=== PATIENT | female | born 1960 | race Caucasian/White ===

== ENCOUNTER → 2020-01-11 12:37 | Outpatient (BNVA) | payer OTHER, SELFPAY | PROVIDERS: PCP Internal Medicine; Referring Provider Internal Medicine; Visit Provider Student in an Organized Health Care Education/Training Program | DX: M05.79 Rheumatoid arthritis with rheumatoid factor of multiple sites without organ or systems involvement (principal); M1A.30X0 Chronic gout due to renal impairment, unspecified site, without tophus (tophi) | CPT/HCPCS: 99213 ==

== ENCOUNTER 2020-01-19 18:27 | Emergency (ER) | payer OTHER, SELFPAY ==
[2020-01-19 19:18] VITALS: BP 149/65; PULSE 78; RESP 16; TEMP 36.6; O2SAT 97; BMI 34.1
--- NOTE | 2020-01-19 19:37 | ED_ITS ---
HPI - Wound/Laceration General Chief Complaint: Wound/Laceration Stated Complaint: FINGER LAC Time Seen by Provider: 01/19/20 19:30 History of Present Illness HPI narrative: Patient was home slicing something for dinner and cut the tip of her left middle finger with the knife, no other injury no numbness no weakness no tingling, she applied a Band-Aid and bleeding stopped this happened about an hour ago and pain is mild She has not had a tetanus shot as far back as she could remember Related Data Home Medications Medication Instructions Recorded Confirmed aspirin 81 mg tablet,delayed 81 mg PO DAILY 01/11/20 01/11/20 release carvedilol 12.5 mg tablet 12.5 mg PO BID 01/11/20 01/11/20 colchicine 0.6 mg tablet 0.6 mg PO DAILY 01/11/20 01/11/20 ergocalciferol (vitamin D2) 1,250 1,250 mcg PO QWEEK 01/11/20 01/11/20 mcg (50,000 unit) capsule loratadine 10 mg tablet 10 mg PO DAILY 01/11/20 01/11/20 probenecid 500 mg tablet 500 mg PO DAILY tab 01/11/20 01/11/20 rosuvastatin 20 mg tablet 20 mg PO DAILY 01/11/20 01/11/20 spironolactone 25 mg tablet 12.5 mg PO DAILY tab 01/11/20 01/11/20 Previous Rx's Medication Instructions Recorded prednisone 5 mg tablet 5 mg PO DAILY 30 Days #30 tab 12/24/19 zolpidem 10 mg tablet 10 mg PO BEDTIME PRN 30 Days #30 12/24/19 tab torsemide 10 mg tablet 10 mg PO DAILY 30 Days #30 tab 12/29/19 oxycodone 15 mg tablet 15 mg PO Q6H PRN 28 Days #112 tab 01/12/20 Allergies Allergy/AdvReac Type Severity Reaction Status Date / Time acetaminophen [From TYLENOL] Allergy Unknown RASH Verified 01/11/20 12:52 amoxicillin [From AUGMENTIN] Allergy Unknown RASH, hives Verified 01/11/20 12:52 aspirin [ASPIRIN] Allergy Unknown SENSITIVITY Verified 01/11/20 12:52 atorvastatin [From LIPITOR] Allergy Unknown ABDOMNINAL Verified 01/11/20 12:52 PAINS AND CRAMPS cephalexin [From KEFLEX] Allergy Unknown VOMITING Verified 01/11/20 12:52 clavulanic acid Allergy Unknown RASH Verified 01/11/20 12:52 [From AUGMENTIN] ibuprofen [IBUPROFEN] Allergy Unknown ABDOMINAL Verified 01/11/20 12:52 PAIN, abdominal pains ONLY at high doses, abd pain with high doses losartan Allergy Unknown tremors, Verified 01/11/20 12:52 dizziness morphine Allergy Unknown rash, Unverified 10/18/19 00:00 vomiting, vomiting, rash Penicillins [PENICILLINS] Allergy Unknown RASH Verified 01/11/20 12:52 LOSARTAN POTASSIUM Allergy Unknown TREMORS/DIZ Uncoded 12/07/19 18:28 ZINESS Review of Systems Review of Systems: No numbness no tingling no fever no dizziness no weakness Yes all other systems are reviewed and are negative [facility] Past Medical History Source: nursing notes reviewed Medical History (Updated 01/19/20 @ 19:54 by WLAT Vu) Gout Insomnia Pacemaker Rheumatoid arthritis Social History Social History (Updated 01/11/20 @ 12:49 by Antony Caicedo LPN) Alcohol intake: never Smoking Status: Current every day smoker Tobacco Type: Cigarette Substance Use Type: Marijuana Advance Directives: No Physical Exam Vital Signs: Vital Signs: Vital Signs Temp Pulse Resp BP Pulse Ox 01/19/20 19:18 97.8 F 78 16 149/65 H 97 Body Mass Index 34.1 Patient is A&O x3, comfortable, no distress Head is normocephalic atraumatic Neck is supple Respiratory no respiratory distress Extremity exam of the left middle finger there is a 1 cm flap laceration that is not bleeding, no deformity, full range of motion in all joints, no evidence of tendon laceration and all is neurovascular intact Neuro and O x3, no focal deficits Course Course Course Narrative: Procedure note for left middle finger did tip distal phalanx 1 cm laceration, flap laceration Digital block with 8 cc of 1% lidocaine was placed with good anesthesia The flap laceration was cleansed and irrigated with normal saline The laceration was then closed with 3 5.0 sutures Bleeding was controlled, neurovascular intact Discharge Plan Discharge Clinical Impression: Finger laceration Qualifiers: Encounter type: initial encounter Finger: middle finger Damage to nail status: without damage Laterality: left Qualified Code(s): S61.213A - Laceration without foreign body of left middle finger without damage to nail, initial encounter Patient Disposition: Home, Self-Care Additional Instructions: Stitches out in 7 days Return any time for redness swelling fever any sign of infection, red stripe up the arm, discharge from the wound, any concerns or worse condition You got a tetanus shot Prescriptions: No Action prednisone 5 mg tablet 5 mg PO DAILY 30 Days Qty: 30 RF: 1 zolpidem 10 mg tablet 10 mg PO BEDTIME PRN (Reason: sleep) 30 Days Qty: 30 RF: 2 torsemide 10 mg tablet 10 mg PO DAILY 30 Days Qty: 30 RF: 3 oxycodone 15 mg tablet 15 mg PO Q6H PRN (Reason: pain) 28 Days Qty: 112 RF: 0 aspirin [Adult Low Dose Aspirin] 81 mg tablet,delayed release (DR/EC) 81 mg PO DAILY RF: 0 spironolactone 25 mg tablet 12.5 mg PO DAILY RF: 0 carvedilol 12.5 mg tablet 12.5 mg PO BID RF: 0 rosuvastatin 20 mg tablet 20 mg PO DAILY RF: 0 ergocalciferol (vitamin D2) 1,250 mcg (50,000 unit) capsule 1,250 mcg PO QWEEK RF: 0 loratadine [Claritin] 10 mg tablet 10 mg PO DAILY RF: 0 probenecid 500 mg tablet 500 mg PO DAILY RF: 0 colchicine [Colcrys] 0.6 mg tablet 0.6 mg PO DAILY RF: 0 Interventions: ED Discharge Assessment Last Done: 01/19/20 20:42 Discharge Date/Time: 01/19/20 20:46
[2020-01-19] MEDS: Lidocaine HCl 1 % MPF 5 ML VIAL 10 ML SUBCUT (19:52)
== END 2020-01-19 20:46 | disposition home or self-care (01) ==
PROVIDERS: Emergency Provider Internal Medicine; PCP Internal Medicine
DX: S61.213A Laceration without foreign body of left middle finger without damage to nail, initial encounter (principal); S60.413A Abrasion of left middle finger, initial encounter; M79.645 Pain in left finger(s); W26.0XXA Contact with knife, initial encounter; Y93.9 Activity, unspecified; Y92.000 Kitchen of unspecified non-institutional (private) residence as the place of occurrence of the external cause; Y99.9 Unspecified external cause status; Z79.899 Other long term (current) drug therapy; F17.210 Nicotine dependence, cigarettes, uncomplicated; Z71.6 Tobacco abuse counseling; Z23 Encounter for immunization
CPT/HCPCS: 12001; 90471; 90715; 99284

== ENCOUNTER 2020-11-04 13:33 | Emergency (ER) | payer OTHER, SELFPAY ==
[2020-11-04 13:50] VITALS: BP 121/61; PULSE 72; RESP 18; TEMP 36.8; O2SAT 98; BMI 33.6
[2020-11-04] MEDS: Lidocaine HCl 1 % MPF 5 ML VIAL SUBCUT ×2 (15:15)
--- NOTE | 2020-11-04 15:33 | ED.SKABFB ---
HPI - Skin/Abscess/Foreign Bdy General Chief complaint: Skin/Abscess/Foreign Body Stated complaint: abscess Time Seen by Provider: 11/04/20 14:39 History of Present Illness HPI narrative: Patient complains of right thigh redness swelling and pain similar to prior abscess in the same area, no fever no chills Related Data Home Medications Medication Instructions Recorded Confirmed aspirin 81 mg tablet,delayed 81 mg PO DAILY 01/11/20 05/28/20 release (Adult Low Dose Aspirin) albuterol sulfate 90 mcg/actuation 2 puff INHALATION Q6H PRN 02/27/20 05/28/20 aerosol inhaler cholecalciferol (vitamin D3) 1,250 1,250 mcg PO QWEEK 02/27/20 05/28/20 mcg (50,000 unit) capsule Previous Rx's Medication Instructions Recorded probenecid 500 mg tablet 500 mg PO BID #60 tab 03/16/20 ergocalciferol (vitamin D2) 1,250 1,250 mcg PO QWEEK 90 Days #13 cap 04/02/20 mcg (50,000 unit) capsule spironolactone 25 mg tablet 12.5 mg PO DAILY 90 Days #45 tab 04/29/20 docusate sodium 100 mg capsule 100 mg PO DAILY PRN #30 cap 07/08/20 (Stool Softener) rosuvastatin 20 mg tablet 20 mg PO DAILY 90 Days #90 tab 07/18/20 torsemide 20 mg tablet 20 mg PO .COMPLEX #90 tab 08/05/20 carvedilol 12.5 mg tablet 12.5 mg PO BID #180 tab 08/16/20 colchicine 0.6 mg tablet 0.6 mg PO DAILY #90 tab 08/16/20 famotidine 20 mg tablet 20 mg PO BID PRN #180 tab 08/16/20 loratadine 10 mg tablet 10 mg PO DAILY PRN #30 tab 10/13/20 prednisone 5 mg tablet 5 mg PO DAILY #30 tab 10/13/20 oxycodone 15 mg tablet 15 mg PO Q6H PRN 28 Days #112 tab 10/14/20 zolpidem 10 mg tablet 10 mg PO BEDTIME PRN 30 Days #30 10/20/20 tab prednisone 10 mg tablets in a dose See Rx Instructions PO PER PKG DIR 10/22/20 pack 8 Days #20 tab carisoprodol 350 mg tablet 350 mg PO QID PRN 30 Days #120 tab 10/29/20 sacubitril 49 mg-valsartan 51 mg 1 tab PO BID 90 Days #180 tab 10/29/20 tablet (Entresto) doxycycline hyclate 100 mg capsule 100 mg PO BID 7 Days #14 cap 11/04/20 Allergies Allergy/AdvReac Type Severity Reaction Status Date / Time acetaminophen [From TYLENOL] Allergy Unknown RASH Verified 05/28/20 15:28 amoxicillin [From AUGMENTIN] Allergy Unknown RASH, hives Verified 05/28/20 15:28 aspirin [ASPIRIN] Allergy Unknown SENSITIVITY Verified 05/28/20 15:28 clavulanic acid Allergy Unknown RASH Verified 05/28/20 15:28 [From AUGMENTIN] morphine Allergy Unknown rash, Verified 05/28/20 15:28 vomiting, vomiting, rash Penicillins [PENICILLINS] Allergy Unknown RASH Verified 05/28/20 15:28 atorvastatin [From LIPITOR] AdvReac Unknown ABDOMNINAL Verified 05/28/20 15:28 PAINS AND CRAMPS cephalexin [From KEFLEX] AdvReac Unknown VOMITING Verified 05/28/20 15:28 ibuprofen [IBUPROFEN] AdvReac Unknown ABDOMINAL Verified 05/28/20 15:28 PAIN, abdominal pains ONLY at high doses, abd pain with high doses losartan AdvReac Unknown tremors, Verified 05/28/20 15:28 dizziness Review of Systems Review of Systems: Positive for right thigh abscess Negatives are no fever no chills no headache no neck pain no difficulty breathing no calf pain no calf swelling no joint pains Yes all other systems are reviewed and are negative [facility] Past Medical History Source: nursing notes reviewed Medical History Chronic kidney disease, stage 4 (severe) Constipation Coronary artery disease Gout Insomnia Ischemic cardiomyopathy with implantable cardioverter-defibrillator (ICD) Left breast lump Lumbar degenerative disc disease Obesity (BMI 30-39.9) Pacemaker Primary insomnia Primary osteoarthritis of right elbow Pure hypercholesterolemia Rheumatoid arthritis Smoker Vitamin D deficiency Surgical History Fusion of lumbar spine H/O heart artery stent History of pacemaker History of surgery Family History Family History Father Hodgkin disease Mother Uterine cancer CHF (congestive heart failure) CVD (cardiovascular disease) Social History Social History Alcohol intake: never Cigarettes Per Day: 12 Substance Use Type: Marijuana Advance Directives: No Advance Directives Information Provided: No Patient : No Physical Exam Vital Signs: Vital Signs: Last Vital Signs Temp 98.2 F 11/04/20 13:50 Pulse 72 11/04/20 13:50 Resp 18 11/04/20 13:50 BP 121/61 11/04/20 13:50 Pulse Ox 98 11/04/20 13:50 Body Mass Index 33.6 General appearance no acute distress Head is normocephalic atraumatic Neck is supple Respiratory no distress Extremities the right mid upper medial thigh has a small area of redness swelling and tenderness consistent with an abscess, full range of motion in hip and thigh, walking with no limp Course Course Course Narrative: Right thigh abscess is cleansed with Betadine Anesthesia is 8 cc of 1% lidocaine A small incision was made with discharge of pus, loculations were broken up with forceps and packing was placed Discharge Plan Discharge Clinical Impression: Abscess Patient Disposition: Home, Self-Care Additional Instructions: Return to ER in 2 days for packing removal/wound check Return any time for spreading redness worse pain and swelling fever any worse condition or any concerns Prescriptions: New doxycycline hyclate 100 mg capsule 100 mg PO BID 7 Days Qty: 14 RF: 0 No Action probenecid 500 mg tablet 500 mg PO BID Qty: 60 RF: 3 ergocalciferol (vitamin D2) 1,250 mcg (50,000 unit) capsule 1,250 mcg PO QWEEK 90 Days Qty: 13 RF: 3 spironolactone 25 mg tablet 12.5 mg PO DAILY 90 Days Qty: 45 RF: 5 docusate sodium [Stool Softener] 100 mg capsule 100 mg PO DAILY PRN (Reason: for constipation) Qty: 30 RF: 5 rosuvastatin 20 mg tablet 20 mg PO DAILY 90 Days Qty: 90 RF: 1 torsemide 20 mg tablet 20 mg PO .COMPLEX Qty: 90 RF: 1 colchicine 0.6 mg tablet 0.6 mg PO DAILY Qty: 90 RF: 0 famotidine 20 mg tablet 20 mg PO BID PRN (Reason: for heartburn) Qty: 180 RF: 0 carvedilol 12.5 mg tablet 12.5 mg PO BID Qty: 180 RF: 1 prednisone 5 mg tablet 5 mg PO DAILY Qty: 30 RF: 1 loratadine 10 mg tablet 10 mg PO DAILY PRN (Reason: for allergies) Qty: 30 RF: 5 oxycodone 15 mg tablet 15 mg PO Q6H PRN (Reason: pain) 28 Days Qty: 112 RF: 0 zolpidem 10 mg tablet 10 mg PO BEDTIME PRN (Reason: sleep) 30 Days Qty: 30 RF: 2 prednisone 10 mg tablets,dose pack See Rx Instructions PO PER PKG DIR 8 Days Qty: 20 RF: 0 carisoprodol 350 mg tablet 350 mg PO QID PRN (Reason: muscle pain) 30 Days Qty: 120 RF: 0 Entresto 49-51 mg tablet 1 tab PO BID 90 Days Qty: 180 RF: 3 albuterol sulfate 90 mcg/actuation HFA aerosol inhaler 2 puff inhalation Q6H PRNRF: 0 cholecalciferol (vitamin D3) 1,250 mcg (50,000 unit) capsule 1,250 mcg PO QWEEK RF: 0 aspirin [Adult Low Dose Aspirin] 81 mg tablet,delayed release (DR/EC) 81 mg PO DAILY RF: 0
== END 2020-11-04 15:52 | disposition home or self-care (01) ==
PROVIDERS: Emergency Provider Internal Medicine; PCP Internal Medicine
DX: L02.415 Cutaneous abscess of right lower limb (principal); E78.00 Pure hypercholesterolemia, unspecified; F17.210 Nicotine dependence, cigarettes, uncomplicated; Z95.0 Presence of cardiac pacemaker; Z79.899 Other long term (current) drug therapy; Z79.02 Long term (current) use of antithrombotics/antiplatelets; Z79.82 Long term (current) use of aspirin
CPT/HCPCS: 10060; 99283; 99284

== ENCOUNTER 2021-01-24 10:30 | Emergency (ER) | payer OTHER, SELFPAY ==
[2021-01-24 11:01] VITALS: BP 112/43; PULSE 86; RESP 18; TEMP 37.2; O2SAT 95; BMI 34.4
--- NOTE | 2021-01-24 11:09 | ED_ITS ---
HPI - Skin/Abscess/Foreign Bdy General Chief complaint: Skin/Abscess/Foreign Body Stated complaint: abscess Time Seen by Provider: 01/24/21 11:07 Source: patient and family Mode of arrival: ambulatory Limitations: no limitations History of Present Illness MD complaint: abscess/boil Onset (ago): week(s) (One week) Location: LUE (Left axillary) Severity: mild Quality: aching Pain Consistency: constant Relieving factors: none Exacerbating factors: none Context: none Associated symptoms: denies other symptoms Treatments prior to arrival: none Related Data Home Medications Medication Instructions Recorded Confirmed aspirin 81 mg tablet,delayed 81 mg PO DAILY 01/11/20 12/13/20 release (Adult Low Dose Aspirin) Previous Rx's Medication Instructions Recorded ergocalciferol (vitamin D2) 1,250 1,250 mcg PO QWEEK 90 Days #13 cap 04/02/20 mcg (50,000 unit) capsule spironolactone 25 mg tablet 12.5 mg PO DAILY 90 Days #45 tab 04/29/20 torsemide 20 mg tablet 20 mg PO .COMPLEX #90 tab 08/05/20 carvedilol 12.5 mg tablet 12.5 mg PO BID #180 tab 08/16/20 loratadine 10 mg tablet 10 mg PO DAILY PRN #30 tab 10/13/20 sacubitril 49 mg-valsartan 51 mg 1 tab PO BID 90 Days #180 tab 10/29/20 tablet (Entresto) doxycycline hyclate 100 mg capsule 100 mg PO BID 7 Days #14 cap 11/04/20 colchicine 0.6 mg tablet 0.6 mg PO DAILY #90 tab 11/18/20 cholecalciferol (vitamin D3) 1,250 1,250 mcg PO QWEEK 90 Days #13 cap 11/22/20 mcg (50,000 unit) capsule probenecid 500 mg tablet 500 mg PO BID #180 tab 12/02/20 albuterol sulfate 90 mcg/actuation 2 puff INHALATION Q6H PRN 30 Days 12/04/20 aerosol inhaler #8.5 g prednisone 5 mg tablet 5 mg PO DAILY #30 tab 12/12/20 carisoprodol 350 mg tablet 350 mg PO QID PRN 30 Days #120 tab 12/30/20 docusate sodium 100 mg capsule 100 mg PO DAILY PRN #30 cap 12/30/20 oxycodone 15 mg tablet 15 mg PO Q6H PRN 28 Days #112 tab 01/01/21 famotidine 20 mg tablet 20 mg PO BID PRN #180 tab 01/08/21 rosuvastatin 20 mg tablet 20 mg PO DAILY #90 tab 01/08/21 zolpidem 10 mg tablet 10 mg PO BEDTIME PRN 30 Days #30 01/13/21 tab doxycycline hyclate 100 mg tablet 100 mg PO BID 10 Days #20 tab 01/24/21 Allergies Allergy/AdvReac Type Severity Reaction Status Date / Time acetaminophen [From TYLENOL] Allergy Unknown RASH Verified 01/24/21 11:03 amoxicillin [From AUGMENTIN] Allergy Unknown RASH, hives Verified 01/24/21 11:03 aspirin [ASPIRIN] Allergy Unknown SENSITIVITY Verified 01/24/21 11:03 clavulanic acid Allergy Unknown RASH Verified 01/24/21 11:03 [From AUGMENTIN] morphine Allergy Unknown rash, Verified 01/24/21 11:03 vomiting, vomiting, rash Penicillins [PENICILLINS] Allergy Unknown RASH Verified 01/24/21 11:03 atorvastatin [From LIPITOR] AdvReac Unknown ABDOMNINAL Verified 01/24/21 11:03 PAINS AND CRAMPS cephalexin [From KEFLEX] AdvReac Unknown VOMITING Verified 01/24/21 11:03 ibuprofen [IBUPROFEN] AdvReac Unknown ABDOMINAL Verified 01/24/21 11:03 PAIN, abdominal pains ONLY at high doses, abd pain with high doses losartan AdvReac Unknown tremors, Verified 01/24/21 11:03 dizziness Review of Systems Review of Systems: Constitutional : No Fever, No Chills, Cardiovascular : No Chest Pain, No SOB Respiratory : No Dyspnea Gastrointestinal : No abdominal pain Musculoskeletal : No Joint Swelling Skin : positive skin abscess with surrounding erythema, no skin laceration, No Foreign bodies, No rash Neuro : No Weakness, No Numbness/tingling Psych : No SI/HI/thoughts of self injury Yes all other systems are reviewed and are negative [facility] Past Medical History Attestation statement: The following information was validated with the patient. Medical History Chronic kidney disease, stage 4 (severe) Constipation Coronary artery disease Gout Insomnia Ischemic cardiomyopathy with implantable cardioverter-defibrillator (ICD) Left breast lump Lumbar degenerative disc disease Obesity (BMI 30-39.9) Pacemaker Primary insomnia Primary osteoarthritis of right elbow Pure hypercholesterolemia NIMCO (renal artery stenosis) Rheumatoid arthritis Smoker Vitamin D deficiency Surgical History Fusion of lumbar spine H/O heart artery stent History of pacemaker History of surgery Family History Family History Father Hodgkin disease Mother Uterine cancer CHF (congestive heart failure) CVD (cardiovascular disease) Social History Social History Housing: Apartment Alcohol intake: never Patient Tobacco Use Status: Current everyday Tobacco user Cigarettes Per Day: 8 Second Hand Smoke Exposure: Yes Substance Use Type: Marijuana Advance Directives: Yes Advance Directives Information Provided: Yes Advance Directives on File: No Patient : No service: No Current occupational status: disabled Physical Exam Vital Signs: Vital Signs: Last Vital Signs Temp 99.0 F 01/24/21 11:01 Pulse 86 01/24/21 11:01 Resp 18 01/24/21 11:01 BP 112/43 L 01/24/21 11:01 Pulse Ox 95 01/24/21 11:01 Body Mass Index 34.4 vital signs have been reviewed as normal and appeared to be correct. Blood pressure normal Heart rate normal. Respiration rate normal. Temperature normal. Oxygen saturation normal. Appearance: Alert. Oriented X3. No acute distress. Head: Normal external exam. Normocephalic. Atraumatic. Eyes: PERRLA. EOMI. Conjunctiva and sclera normal. Eyelids normal. ENT: Pharynx normal. Uvula midline. Moist mucous membranes. Neck: Normal inspection. Neck supple. FROM. CVS: Normal heart rate and rhythm. Respiratory: No respiratory distress. Painless inspiration. Skin: Skin warm and dry. Normal skin color. Normal skin turgor. To the left axillary patient has a 2 x 2 cm tender fluctuant abscess with surrounding glen thema to left axillary. No streaking/induration/foreign bodies noted. No rashes/lesions/lacerations noted. Extremities: Extremities exhibit normal range of motion. Extremities nontender. Neuro: Oriented X 3. No motor deficit. No sensory deficit. Reflexes normal. Normal steady gait. No focal neuro deficits noted. Vascular: + radial pulses/+ 2 distal pedal pulses/+2 dorsalis pedis b/l. Normal cap refill. No cyanosis noted to upper extremity nails and lower extremity toes nails. Course Course Course Narrative: 60-year-old female presenting to the ED with an abscess to the left axillary for the past week worse today. Denies history of MRSA. On exam she has a tender fluctuant abscess. She is now status post I and D of left axillary abscess. Patient tolerated procedure well. No complications. Will DC home with antibiotics and symptomatic treatment instructions return if any new or worsening symptoms to follow up with primary care provider. Patient understands agrees with this plan. MDM - Skin/Abscess/Foreign Bdy Medical Records Attestation: I reviewed the patient's medical records. Procedures Abscess I/D Site: upper extremity (left axillary ) Side (if applicable): left Local Anesthetic: lidocaine 1% Technique: incised with blade Amount of fluid expressed (mL): 10 Sent for culture/gram staining?: No Irrigation: Yes Packing used?: none Complications: other (No complications patient tolerated procedure well) Discharge Plan Discharge Clinical Impression: Cellulitis, Abscess Patient Disposition: Home, Self-Care Instructions: Cellulitis (ED), Abscess Incision and Drainage (DC) Prescriptions: New doxycycline hyclate 100 mg tablet 100 mg PO BID 10 Days Qty: 20 RF: 0 No Action ergocalciferol (vitamin D2) 1,250 mcg (50,000 unit) capsule 1,250 mcg PO QWEEK 90 Days Qty: 13 RF: 3 spironolactone 25 mg tablet 12.5 mg PO DAILY 90 Days Qty: 45 RF: 5 torsemide 20 mg tablet 20 mg PO .COMPLEX Qty: 90 RF: 1 carvedilol 12.5 mg tablet 12.5 mg PO BID Qty: 180 RF: 1 loratadine 10 mg tablet 10 mg PO DAILY PRN (Reason: for allergies) Qty: 30 RF: 5 Entresto 49-51 mg tablet 1 tab PO BID 90 Days Qty: 180 RF: 3 colchicine 0.6 mg tablet 0.6 mg PO DAILY Qty: 90 RF: 0 cholecalciferol (vitamin D3) 1,250 mcg (50,000 unit) capsule 1,250 mcg PO QWEEK 90 Days Qty: 13 RF: 3 probenecid 500 mg tablet 500 mg PO BID Qty: 180 RF: 1 albuterol sulfate 90 mcg/actuation HFA aerosol inhaler 2 puff inhalation Q6H PRN (Reason: shortness of breath or wheezing) 30 Days Qty: 8.5 RF: 5 prednisone 5 mg tablet 5 mg PO DAILY Qty: 30 RF: 1 docusate sodium 100 mg capsule 100 mg PO DAILY PRN (Reason: for constipation) Qty: 30 RF: 5 carisoprodol 350 mg tablet 350 mg PO QID PRN (Reason: muscle pain) 30 Days Qty: 120 RF: 0 oxycodone 15 mg tablet 15 mg PO Q6H PRN (Reason: pain) 28 Days Qty: 112 RF: 0 rosuvastatin 20 mg tablet 20 mg PO DAILY Qty: 90 RF: 1 famotidine 20 mg tablet 20 mg PO BID PRN (Reason: for heartburn) Qty: 180 RF: 0 zolpidem 10 mg tablet 10 mg PO BEDTIME PRN (Reason: sleep) 30 Days Qty: 30 RF: 2 doxycycline hyclate 100 mg capsule 100 mg PO BID 7 Days Qty: 14 RF: 0 aspirin [Adult Low Dose Aspirin] 81 mg tablet,delayed release (DR/EC) 81 mg PO DAILY RF: 0 Referrals: Faraz Lau MD [Primary Care Provider] - 2 days Print Language: Burmese
[2021-01-24] MEDS: Lidocaine HCl 1 % MPF 5 ML VIAL SUBCUT (11:16)
== END 2021-01-24 11:34 | disposition home or self-care (01) ==
PROVIDERS: Emergency Provider Emergency Medicine; PCP Internal Medicine
DX: L02.412 Cutaneous abscess of left axilla (principal); L03.112 Cellulitis of left axilla; N18.4 Chronic kidney disease, stage 4 (severe); Z95.0 Presence of cardiac pacemaker
CPT/HCPCS: 10060; 99283; 99284